=== PATIENT | male | born 1975 | race Caucasian/White ===

== ENCOUNTER 2017-02-15 14:08 | Emergency (ER) | payer OTHER ==
[~2017-02-15 14:08] MED LIST: ACETAMINOPHEN PO; ALPRAZOLAM; ALPRAZOLAM PO; ANTIVERT PO; AZITHROMYCIN250 MG PO; BACTROBAN22 GM TP; CIPRO PO; CIPRO500 MG/5 M PO; CLEOCIN150 MG PO; FAST RELIEF LAX10 MG RC; FENTANYL; FLEXERIL PO; GUAIFENESIN200 MG PO; HYDROCODON-ACE1 EAC5 PO; IBUPROFEN PO; IBUPROFEN800 MG PO; KEFLEX500 MG PO; MIRALAX17 G2 PO; MORPHINE IR PO; NARCO; NORCO 10-325 TA1 TAB PO; NORCO 10/325 TA1 TAB PO; NORCO1 TAB 10/3 PO; OPANA; OPANA ER30 MG PO; OPANA ER5 MG; OPANA PO; OXYCONTIN PO; OXYCONTIN40 MG PO; OXYMORPHONE HCL PO; OXYMORPHONE HCL30 MG PO; ROXICODONE15 MG PO; SOMA PO; STOOL SOFTENER100 M1; STOOL SOFTENER100 M1 PO; STOOL SOFTENER240 MG PO; XANAX1 MG PO; ZOLOFT50 MG PO; [UNRECOGNIZED DRUG - OTHER]
[2017-02-15] MEDS ORDERED: XANAX PO (14:15)
== END 2017-02-15 15:40 | disposition home or self-care (01) ==
LOC: SED 14:08
DX: M79.672 Pain in left foot (principal); G89.29 Other chronic pain; F41.9 Anxiety disorder, unspecified; F17.210 Nicotine dependence, cigarettes, uncomplicated; Z88.2 Allergy status to sulfonamides
CPT/HCPCS: 99283

== ENCOUNTER 2017-02-21 13:48 | Emergency (ER) | payer OTHER ==
--- NOTE | ~2017-02-21 | CR127 ---
[facility] A Service of [facility] & [facility] RADIOLOGY TEXT RESULTS PATIENT: LIMA COHN LOCATION: SED : 77 UNIT #: [id number] AGE: [address]: Marge Ramirez SEX: M ORDER DR: [id number] [place] [id number] E MR#: [id number] Acc #: [id number] NAME: LIMA COHN : 1975 SEX: M STUDY DATE/TIME: 02/21/2017 14:43 UNIT: SED ROOM: STUDY DESCRIPTION: CR Foot Complete Min 3 View Rt Attending Physician: Marge Ramirez Pa-C Ordering Physician: Marge Ramirez Pa-C Primary Care Physician: Rambo Motley M.D. MEDICAL IMAGING REPORT This report is preliminary unless electronic signature is present. EXAM Right foot HISTORY Puncture wound to the foot occurring prior to arrival today. Dog bite. TECHNIQUE 3 views of the right foot were obtained. FINDINGS The tarsal, metatarsal, and phalangeal elements are all anatomically normal in position and alignment. There are no articular defects. No fractures or radiopaque foreign bodies in the soft tissues are apparent. IMPRESSION Normal foot. Dictated by... Hamilton Perez M.D. THIS IS AN ELECTRONICALLY VERIFIED REPORT Hamilton Perez M.D. at 02/22/2017 3:40 PM RLF/rose TD: 02/21/2017 16:48 JOB #: [id number] MEDICAL IMAGING REPORT Page 1 of 1
[~2017-02-21 13:48] MED LIST changes: +XANAX PO
[2017-02-21] MEDS ORDERED: KLONOPIN PO (14:00)
== END 2017-02-21 16:07 | disposition home or self-care (01) ==
LOC: SED 13:48
DX: S91.351A Open bite, right foot, initial encounter (principal); F41.9 Anxiety disorder, unspecified; F17.200 Nicotine dependence, unspecified, uncomplicated; Z79.899 Other long term (current) drug therapy; Z88.2 Allergy status to sulfonamides; W54.0XXA Bitten by dog, initial encounter; Y92.009 Unspecified place in unspecified non-institutional (private) residence as the place of occurrence of the external cause
CPT/HCPCS: 73630; 90471; 90715; 99283

== ENCOUNTER 2017-02-26 23:58 | Emergency (ER) | payer OTHER ==
[~2017-02-26] VITALS: Ht 182.9 cm; Wt 99.8 kg
[~2017-02-26 23:58] MED LIST changes: +KLONOPIN PO
== END 2017-02-27 02:31 | disposition home or self-care (01) ==
LOC: SED 23:58
DX: S91.351A Open bite, right foot, initial encounter (principal); L03.115 Cellulitis of right lower limb; F41.9 Anxiety disorder, unspecified; F17.210 Nicotine dependence, cigarettes, uncomplicated; Z79.899 Other long term (current) drug therapy; Z88.2 Allergy status to sulfonamides; W54.0XXA Bitten by dog, initial encounter
CPT/HCPCS: 96365; 99283